=== PATIENT | male | born 1950 | race Hispanic/Latino ===

== ENCOUNTER 2018-12-01 10:16 | Emergency (ER) | payer MEDICARE ==
[~2018-12-01] VITALS: Ht 160 cm; Wt 74.8 kg
[2018-12-01] MEDS ORDERED: KETOROLAC TROMETHAMINE 30 MG/ML VIAL IV STA (10:34)
[2018-12-01] MEDS ORDERED: HYDRALAZINE HCL 20 MG/ML VIAL IV ONE (10:45)
[2018-12-01] MEDS ORDERED: HYDRALAZINE HCL 20 MG/ML VIAL ONE (10:57)
[2018-12-01] MEDS ORDERED: KETOROLAC TROMETHAMINE 30 MG/ML VIAL ONE (10:57)
--- NOTE | 2018-12-01 11:00 | Diagnostic Imaging Report ---
EXAM: CT Abdomen and Pelvis WITHOUT intravenous contrast INDICATION: Abdominal pain COMPARISON: None. TECHNIQUE: Theabdomen and pelvis were scanned utilizing a multidetector helical scanner from the lung base to the pubic symphysis without administration of IV contrast. Coronal and sagittal reformations were obtained. IV CONTRAST: None ORAL CONTRAST: Water COMPLICATIONS: None RADIATION DOSE: Total DLP: 525.9 mGy*cm Dose modulation, iterative reconstruction, and/or weight based adjustment of the mA/kV was utilized to reduce the radiation dose to as low as reasonably achievable. FINDINGS: LOWER THORAX: Multichamber cardiomegaly. Atherosclerotic calcifications of the coronary arteries. HEPATOBILIARY: No focal hepatic lesions. The gallbladder appears unremarkable. SPLEEN: No splenomegaly. PANCREAS: No focal masses or ductal dilatation. ADRENALS: No adrenal nodules. KIDNEYS/URETERS: No hydronephrosis, stones, or solid mass lesions. PELVIC ORGANS/BLADDER: Unremarkable. PERITONEUM / RETROPERITONEUM: No free air or fluid. LYMPH NODES: No lymphadenopathy. VESSELS: Scattered atherosclerotic calcifications of the nonaneurysmal abdominal aorta and major branches. GI TRACT: Colonic diverticulosis. No CT evidence of diverticulitis. No abnormal bowel wall thickening. No bowel obstruction. Normal appendix. BONES AND SOFT TISSUES: Status post median sternotomy. No acute fracture or dislocation. No suspicious lytic or blastic lesions. IMPRESSION: No acute findings in abdomen or pelvis. Diverticulosis without CT evidence of diverticulitis. Multichamber cardiomegaly and atherosclerotic arterial calcifications including of the coronary arteries. Signed by: Mook Leyva MD on 12/01/2018 10:57 AM
[2018-12-01 11:32] VITALS: BP 175/84
== END 2018-12-01 11:37 | disposition home or self-care (01) ==
LOC: FSED 10:16
DX: R10.9 Unspecified abdominal pain (principal); R31.29 Other microscopic hematuria; N20.1 Calculus of ureter; I10 Essential (primary) hypertension
CPT/HCPCS: 74176; 80053; 81003; 82553; 84484; 85025; 93005; 99284; J0360; J1885

== ENCOUNTER 2022-01-06 16:28 | Emergency (ER) | payer MEDICARE ==
[~2022-01-06] VITALS: Ht 160 cm; Wt 69.0 kg
[2022-01-06] MEDS ORDERED: LOSARTAN POTAS100 MG PO (17:28)
[2022-01-06] MEDS ORDERED: HYDRALAZINE HCL25 MG PO (17:29)
[2022-01-06] MEDS ORDERED: XARELTO10 MG PO (17:29)
[2022-01-06] MEDS ORDERED: ISOSORBIDE MONO30 MG PO (17:29)
[2022-01-06] MEDS ORDERED: ONDANSETRON HCL INJ 2MG/ML 2ML 2 MG/ML VIAL IV STA (17:50)
[2022-01-06] MEDS ORDERED: SODIUM CHLORIDE 0.9% 1000ML 1,000 ML IV SCH (18:00)
[2022-01-06] MEDS ORDERED: Morphine 4mg INJECTION 4 MG/ML INJ IV ONE (18:00)
[2022-01-06] MEDS ORDERED: SODIUM CHLORIDE 0.9% 1000ML 1,000 ML ONE (18:14)
[2022-01-06] MEDS ORDERED: Morphine 4mg INJECTION 4 MG/ML INJ ONE (18:14)
[2022-01-06] MEDS ORDERED: ONDANSETRON HCL INJ 2MG/ML 2ML 2 MG/ML VIAL ONE (18:14)
[2022-01-06] MEDS ORDERED: IOPAMIDOL 370 MG/ML 100 ML INFUS..BTL INJ ONE ×2 (18:39→19:45)
[2022-01-06] MEDS ORDERED: HYDRALAZINE HCL 20 MG/ML VIAL IV STA (19:27)
[2022-01-06] MEDS ORDERED: HYDRALAZINE HCL 20 MG/ML VIAL ONE (20:26)
[2022-01-06] MEDS ORDERED: CYCLOBENZAPRINE5 MG PO ×3 (20:57→21:14)
[2022-01-06 22:19] VITALS: BP 159/76
== END 2022-01-06 21:16 | disposition home or self-care (01) ==
LOC: FSED 17:15
DX: R10.12 Left upper quadrant pain (principal); M54.6 Pain in thoracic spine; I10 Essential (primary) hypertension; I25.10 Atherosclerotic heart disease of native coronary artery without angina pectoris; Z95.1 Presence of aortocoronary bypass graft; R94.31 Abnormal electrocardiogram [ECG] [EKG]
CPT/HCPCS: 71275; 74174; 80048; 80076; 81003; 82553; 84484; 85025; 85379; 93005; 99284; J0360; J2270; J2405; J7030; Q9967

== ENCOUNTER 2024-03-04 21:24 | Emergency (ER) | payer MEDICARE ==
[~2024-03-04] VITALS: Ht 160 cm; Wt 68.9 kg
[~2024-03-04 21:24] MED LIST: CYCLOBENZAPRINE5 MG PO; HYDRALAZINE HCL25 MG PO; ISOSORBIDE MONO30 MG PO; LOSARTAN POTAS100 MG PO; XARELTO10 MG PO
[2024-03-04 21:45] VITALS: TEMP 97.9
[2024-03-04] MEDS ORDERED: HYDRALAZINE HCL 20 MG/ML VIAL ONE (23:07)
[2024-03-04] MEDS: CLONIDINE HCL 0.1 MG TAB PO ONE (23:09)
[2024-03-04 23:14] VITALS: BP 212/104
[2024-03-04] MEDS: HYDRALAZINE HCL 20 MG/ML VIAL IV ONE (23:14)
[2024-03-04] MEDS: ACETAMINOPHEN 325 MG TAB PO ONE (23:14)
[2024-03-05] MEDS ORDERED: POTASSIUM CHLORIDE 20 MEQ TAB CR PO ONE (00:08)
[2024-03-05] MEDS: POTASSIUM CHLORIDE 20 MEQ TAB CR PO STA (00:15)
[2024-03-05 00:18] VITALS: PULSE 62; RESP 17; O2SAT 100
== END 2024-03-05 00:35 | disposition home or self-care (01) ==
LOC: FSED 22:30
DX: R51.9 Headache, unspecified (principal); E87.6 Hypokalemia; I10 Essential (primary) hypertension; E78.5 Hyperlipidemia, unspecified; I25.10 Atherosclerotic heart disease of native coronary artery without angina pectoris; Z95.1 Presence of aortocoronary bypass graft
CPT/HCPCS: 70450; 80048; 80076; 81003; 82553; 84484; 85025; 93005; 99284; J0360